=== PATIENT | male | born 1995 | race Caucasian/White ===

== ENCOUNTER 2018-03-17 20:49 | Emergency (ER) | payer MEDICAID ==
[2018-03-17 21:31] VITALS: BP 128/68
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
== END 2018-03-17 22:20 | disposition home or self-care (01) ==
LOC: UCCORT 20:49
DX: G43.909 Migraine, unspecified, not intractable, without status migrainosus (principal); F17.210 Nicotine dependence, cigarettes, uncomplicated
CPT/HCPCS: 99212; G0463

== ENCOUNTER 2019-01-05 14:20 | Emergency (ER) | payer OTHER ==
[2019-01-05 15:16] VITALS: BP 129/74
--- NOTE | 2019-01-05 15:46 | ED ---
Skin Complaint - HPI Summary HPI Summary: 23 yr old with scab like itchy rash on arms, legs trunk and groin/buttock area. Initially present over the past 2 months but getting really itchy and spreading more the past week. He also complains of neck pain, and spasms in the neck muscles, worse with ROM. NO trauma or falls or injury. No trouble swallowing. No fever or chills. 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 Denies: Traveled Outside the [place] in Last 30 Days - Family History Known Family History: Positive: None, Hypertension - Social History Occupation: Employed Full-time Alcohol Use: Rare Substance Use Type: Reports: None Smoking Status (MU): Heavy Every Day Tobacco Smoker Type: Cigarettes Amount Used/How Often: 1 ppd Length of Time of Smoking/Using Tobacco: age 17 Review of Systems Negative: Fever, Chills, Fatigue Positive: Rash Negative: Headache All Other Systems Reviewed And Are Negative: Yes Physical Exam Triage Information Reviewed: Yes Vital Signs On Initial Exam: Initial Vitals Temp Pulse Resp BP Pulse Ox 98 F 82 15 129/74 99 01/05/19 15:12 01/05/19 15:12 01/05/19 15:12 01/05/19 15:12 01/05/19 15:12 Vital Signs Reviewed: Yes Appearance: Positive: Well-Appearing, No Pain Distress Skin: Positive: Warm, Skin Color Reflects Adequate Perfusion, Other - rash that is scab like and generalized but spares the face and scalp, with tracts consitent with scabies. Head/Face: Positive: Normal Head/Face Inspection Eyes: Positive: Normal, EOMI, [place] ENT: Positive: Normal ENT inspection Neck: Positive: Nontender Respiratory/Lung Sounds: Positive: Clear to Auscultation, Breath Sounds Present Cardiovascular: Positive: RRR. Negative: Murmur Abdomen Description: Negative: Distended Musculoskeletal: Positive: Strength/ROM Intact, Other - neck full range of motion flex, extend, and rotation. Neurological: Positive: Sensory/Motor Intact, Alert, Oriented to Person Place, Time, CN Intact II-III Psychiatric: Positive: Normal Diagnostics - Vital Signs Vital Signs Temp Pulse Resp BP Pulse Ox 01/05/19 15:12 98 F 82 15 129/74 99 - Laboratory Lab Statement: Any lab studies that have been ordered have been reviewed, and results considered in the medical decision making process. Course/Dx - Course Course Of Treatment: 23 yr old with scabies. Rx permethrin, Motrin for mild torticollis. - Diagnoses Provider Diagnoses: Torticollis, Scabies Discharge - Sign-Out/Discharge Documenting (check all that apply): Patient Departure All imaging exams completed and their final reports reviewed: No Studies - Discharge Plan Condition: Good Disposition: HOME Prescriptions: Ibuprofen TAB* [Motrin TAB* 600 MG] 600 mg PO Q8H PRN #14 tab PRN Reason: Pain Permethrin [Elimite] 60 gm TP ONCE #60 cream..g. Patient Education Materials: Scabies (ED), Spasmodic Torticollis (ED) Referrals: Bairon Gonzales MD [Primary Care Provider] - 2 Days - Billing Disposition and Condition Condition: GOOD Disposition: Home
== END 2019-01-05 15:50 | disposition home or self-care (01) ==
LOC: UCCORT 14:20
DX: B86 Scabies (principal); M43.6 Torticollis; F17.210 Nicotine dependence, cigarettes, uncomplicated
CPT/HCPCS: 99212; G0463